=== PATIENT | male | born 1965 | race Caucasian/White ===

== ENCOUNTER 2021-11-12 18:16 | Emergency (ER) | payer BC | END 2021-11-12 19:42 | disposition left against medical advice (07) | LOC: ER1 18:16 | DX: Z53.21 Procedure and treatment not carried out due to patient leaving prior to being seen by health care provider (principal) ==

== ENCOUNTER → 2022-04-13 | Day surgery (SDC) | payer BC ==
[~2022-04-13] MED LIST: CLARITIN10 MG PO; VITAMIN D21250 MCG PO; ZESTRIL/PRINIVI10 MG PO; ZYLOPRIM 300 M300 MG PO
== END | disposition home or self-care (01) ==
LOC: OR 07:12
DX: Z12.11 Encounter for screening for malignant neoplasm of colon (principal); D12.2 Benign neoplasm of ascending colon; E78.5 Hyperlipidemia, unspecified; I10 Essential (primary) hypertension; G47.33 Obstructive sleep apnea (adult) (pediatric); Z79.899 Other long term (current) drug therapy; Z20.822 Contact with and (suspected) exposure to COVID-19
CPT/HCPCS: J2704; J7120